=== PATIENT | male | born 1975 | race Caucasian/White ===

== ENCOUNTER 2017-08-14 13:46 | Observation (INO) ==
[2017-08-14] MEDS ORDERED: ASPIRIN 81 MG (BABY) CHEWABLE TABLET ONE (13:49)
[2017-08-14] MEDS ORDERED: NITROGLYCERIN 0.4 MG SL TAB (BOTTLE OF 3) SL ONE (13:49)
[2017-08-14] MEDS ORDERED: ASPIRIN 81 MG (BABY) CHEWABLE TABLET PO ONE (14:01)
[2017-08-14] MEDS ORDERED: NORMAL SALINE 10 ML SYRINGE FLUSH IVP PRN ×2 (14:01→16:11)
[2017-08-14 14:06] LABS: BASOPHILS # (AUTO) 0.03 10*3/UL; BASOPHILS % (AUTO) 0.3 % (0-1); EOSINOPHILS # (AUTO) 0.06 10*3/UL; EOSINOPHILS % (AUTO) 0.5 % (0-8); Hematocrit [HCT] 47.6 % (42.0-52.0); Hemoglobin [HGB] 16.1 g/dL (14.0-18.0); LYMPHOCYTES # (AUTO) 1.74 10*3/uL; MEAN CORPUSCULAR HEMOGLOBIN 31.4 PG (27-31); MEAN CORPUSCULAR HGB CONC 33.8 g/dL (33-37); MEAN CORPUSCULAR VOLUME 92.8 FL (80-90); MEAN PLATELET VOLUME 9.5 FL (7.4-12.2); MONOCYTES # (AUTO) 0.59 10*3/UL (0.3-0.8); MONOCYTES % (AUTO) 5.1 % (5-15); NEUTROPHILS # (AUTO) 9.09 10*3/UL; NEUTROPHILS % (AUTO) 78.8 % (50-80); RED BLOOD COUNT 5.13 10^6/uL (4.70-6.10)
[2017-08-14 14:07] LABS: PLATELET MORPHOLOGY COMMENT NORMAL MORPHOLOGY (NORM); RBC MORPHOLOGY COMMENT NORMAL MORPHOLOGY (NORM); WBC MORPHOLOGY COMMENT NORMAL MORPHOLOGY (NORM)
--- NOTE | 2017-08-14 14:09 | EKG ---
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
[2017-08-14 14:13] LABS: BLOOD UREA NITROGEN 14 mg/dL (7-22); SERUM ALBUMIN 4.7 g/dL (3.5-4.8)
--- NOTE | 2017-08-14 14:44 | DI ---
AP CHEST X-RAY, 08/14/2017 2:01 PM : Clinical History: Chest pain. Previous Exam: None at this facility. There is no acute soft tissue or bony abnormality. Heart size is normal. Lungs are clear. Mediastinal structures are normal. There are no pulmonary nodules. Reading: Normal chest x-ray.
[2017-08-14] MEDS ORDERED: Sodium Chloride 0.9% 1,000 ML PRIMARY IV ONE (15:00)
[2017-08-14] MEDS ORDERED: FUROSEMIDE 10 MG/1 ML - 4 ML IVP ONE (15:03)
[2017-08-14] MEDS ORDERED: LIDOCAINE W/ SODIUM BICARB 0.5 ML SYR SUBD PRN (16:11)
[2017-08-14] MEDS ORDERED: DOCUSATE 100 MG CAPSULE PO PRN (16:11)
[2017-08-14] MEDS ORDERED: ONDANSETRON 4 MG/2 ML VIAL IVP PRN (16:11)
[2017-08-14] MEDS ORDERED: CALCIUM CARBONATE 500 MG (TUMS) CHEWABLE TABLET PO PRN (16:11)
[2017-08-14] MEDS ORDERED: ACETAMINOPHEN 325 MG TABLET PO PRN (16:11)
--- NOTE | 2017-08-14 16:26 | PDOC ---
HPI - History of Present Illness Date of Service: 08/14/17 Time of Service: 18:00 Chief Complaint: espisode of chest pain, shortnes of breath and dizziness today. 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 He had the feeling that he is going to pass out twice however he managed to go back home then presented to the ER in the ER and he was found to have high blood pressure an EKG done showed questionable Q waves in inferior leads and he was admitted. They did give him Lasix because his blood pressure was high and also was giving aspirin. Now the pain and shortness of breath is gone. He said he is under stress as he lost his , he is not sleeping well, having nightmares and depressed, for these symptoms he saw PA at the clinic and was started on Zoloft last Saturday. Past Medical History Medical History: 1. Recently discovered high blood pressure on no treatment. 2. Depression Surgical History: History of surgery on left forearm Pertinent Family History: Father had congestive heart failure Past Social History: He chews tobacco, no drugs. He drinks variably. 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 However he denied having withdrawal symptoms.) Medication / Allergies Home Medications: Home Medications 3 Medication Instructions Recorded Confirmed Type amoxicillin 875 mg-potassium 1 tab PO Q12H #20 tab 07/29/17 07/29/17 Rx clavulanate 125 mg tablet gentamicin 0.3 % eye drops 2 drp OP Q4H #5 ml 07/29/17 07/29/17 Rx sertraline 25 mg tablet 25 mg PO QDAY #35 tab 08/09/17 Rx Allergies/Adverse Reactions: Allergies 3 Allergy/AdvReac Type Severity Reaction Status Date / Time No Known Allergies Allergy Verified 08/14/17 14:05 Exam - Vitals Vital Signs: Vital Signs Temperature 98.4 F Temperature Source Temporal Artery Scan Pulse Rate 74 Respiratory Rate 16 Blood Pressure 146/120 Pulse Ox 94 Oxygen Delivery Method Room Air Height 5 ft 8 in Weight 297 lb 12.8 oz - General General Appearance: No Acute Distress, Cooperative, Obese - Head Head Exam: Normal Inspection, Atraumatic - Eye Eye Exam: POSITIVE: Normal Appearance - ENT ENT Exam: POSITIVE: Normal Exam - Neck Neck Exam: Normal Inspection - Respiratory Respiratory Exam: POSITIVE: Clear to Auscultation - Bilaterally - Cardiovascular Cardiovascular Exam: POSITIVE: RRR - GI/Abdominal GI/Abdominal Exam: POSITIVE: Normal Bowel Sounds, Non Tender, Non Distended, Soft, No Organomegaly - Rectal Rectal Exam: POSITIVE: Deferred - External Exam: POSITIVE: Deferred - Extremities Extremities Exam: POSITIVE: Normal Inspection - Back Back Exam: POSITIVE: Normal Inspection - Neurological Neurological Exam: POSITIVE: Alert, Oriented x 3, CN II-XII Intact - Psychiatric Psychiatric Exam: POSITIVE: Normal Affect - Integumentary Integumentary Exam: POSITIVE: Normal Color Results - Labs CBC and BMP: 08/14/17 13:50 08/14/17 13:50 - EKG Data -: EKG Interpreted by Me Rate: Normal EKG Shows Normal: Sinus Rhythm (Questionable Q waves in the inferior leads with incomplete RBBB) - Imaging Status: Report Reviewed by Me (Chest x-ray was normal) Assessment and Plan - Patient Problems (1) Chest pain Current Visit: Yes Status: Acute Comment: Atypical chest pain, there is some Q waves though small in the inferior leads unclear significance will order repeat enzymes and will order stress test for him. Code(s): R07.9 - Chest pain, unspecified (2) HTN (hypertension) Current Visit: No Status: Chronic Comment: Blood pressure is uncontrolled he did receive some Lasix in the ER will see what's his blood pressure tonight will put him on lisinopril hydrochlorothiazide tomorrow. If blood pressure remained high and he has symptoms we may give him additional medication for now will wait to see the effect of the Lasix. Code(s): I10 - Essential (primary) hypertension Qualifiers: Hypertension type: essential hypertension Qualified Code(s): I10 - Essential (primary) hypertension
[2017-08-15 02:15] LABS: BLOOD UREA NITROGEN 14 mg/dL (7-22); BUN/CREATININE RATIO 15.55 (6-20)
--- NOTE | 2017-08-15 05:28 | PDOC ---
Chest Pain HPI - General Chief Complaint: Chest Pain Stated Complaint: chest pain Date Seen by Provider: 08/14/17 Time Seen by Provider: 13:55 Source: Patient Exam Limitations: POSITIVE: No limitations Treatment Prior to Arrival: REPORTS: Carlos Alberto Nurse's Notes Reviewed & Considered: Yes - History of Present Illness Initial Comments: The patient is a 42-year-old male. He states that for the past 2 weeks he's been having episodes of substernal chest pain which she describes as "tightness ". He also complains of some associated shortness of breath. He has no known cardiac or pulmonary problems. He states he does not smoke but he does chew tobacco. He has a history of obesity. Also history of hypertension. Body Location Affected: REPORTS: Chest Timing: REPORTS: Intermittent Duration: >1 week (2 weeks) Severity: Moderate Persistent/Worse since (date): 08/14/17 Persistent/Worse since (time): 07:00 Context: DENIES: Sleep, Rest, Emotional Upset, Activity, Exertion, Other Quality: REPORTS: Pressure ("Tightness ") Radiation: REPORTS: None Associated Symptoms: REPORTS: Shortness of Breath. DENIES: Nausea, Vomiting, Diaphoresis, Hurts to Breathe, Palpitations, Productive Cough (blood), Productive Cough (sputum), Weakness, Dizziness Modifying Factors: improves with: None Reported Similar Symptoms Previously: No Recently seen/treated/hospitalized: No Any Prior Injuries Related to Current Complaint?: No - Patient Home Medications Home Medications: Home Medications amoxicillin 875 mg-potassium clavulanate 125 mg tablet 1 tab PO Q12H #20 tab 06/03 gentamicin 0.3 % eye drops 2 drp OP Q4H #5 ml 07/29/17 sertraline 25 mg tablet 25 mg PO QDAY #35 tab 08/09/17 - Patient Allergies Allergies/Adverse Reactions: Allergies 3 Allergy/AdvReac Type Severity Reaction Status Date / Time No Known Allergies Allergy Verified 08/14/17 14:05 Past Medical History - heen HEENT History: Denies History Cardiovascular History: Denies History Respiratory History: Denies History Gastrointestinal History: Denies History Genitourinary History: Denies History Endocrine History: Denies History Musculoskeletal History: Other (please comment) Prosthesis or Implant: Yes Additional Musculoskeletal History: Left hand-pinky plate Neurological History: Denies History Blood Disorders: Denies History Psychiatric History: Anxiety Disorders History of Sexually Transmitted Diseases: No Male Reproductive History: Denies History Cancer History: Denies History In Past Year Been Physically Harmed or Verbally Threatened: No History of MDRO: No Tobacco Use: Never Smoker Type of alcohol normally used: Hard Liquor In the Past 12 Months, Have Used or Abuse Any Substance: None Previous Surgical History: Yes Type / Date of Surgery: ORIF LEFT HAND Significant Family History: Asthma, Heart disease, COPD, Hypertension Past Medical History Reviewed: Reviewed - No Changes ROS - Limitations ROS Limitations: No Limitations Constitution: REPORTS: Denies Symptoms Cardiovascular: REPORTS: Chest Pain Respiratory: REPORTS: Shortness Of Breath Neurological: REPORTS: Denies Neuro Symptoms Gastrointestinal: REPORTS: Denies GI Symptoms Endocrine: REPORTS: Denies Symptoms Musculoskeletal: REPORTS: Denies MS Symptoms Genitourinary: REPORTS: Denies Symptoms Eyes: REPORTS: Denies Symptoms ENT: REPORTS: Denies Symptoms Skin: REPORTS: Denies Skin Symptoms Lympathic: REPORTS: Denies Lympathic Symptoms Immunologic: POSITIVE: Denies Symptoms Psychiatric: POSITIVE: Denies Psych Symptoms Chest Pain PE - General Appearance General Appearance: REPORTS: Alert, Cooperative, No Acute Distress, No Evidence of Trauma, Other (Obese) - HEENT HEENT: POSITIVE: Head Inspection Nml, Eyes Inspection Nml, Ears Inspection Nml, Nose Inspection Nml, Oral/Dental Inspect. Nml, Pharynx Inspect. Nml, PERRL, EOMI - Neck Neck: REPORTS: Normal Inspection, No Carotid Bruit - Respiratory Respiratory: REPORTS: No Respiratory Distress, Breath Sounds Normal, Chest Non- Tender - Cardiovascular Cardiovascular: REPORTS: Regular Rate and Rhythm, Heart Sounds Normal, Equal Pulses, Strong Pulses, No Murmur, No Gallop, No Friction Rub, No JVD Peripheral Pulses: Radial (R): 2+, Radial (L): 2+ - Abdomen Abdomen: Soft: (All Quadrants), Normal Bowel Sounds: (All Quadrants), Denies Tenderness: (All Quadrants), No Splenomegaly: (All Quadrants), No Hepatomegaly: (All Quadrants), No Guarding: (All Quadrants), No Rebound: (All Quadrants), No Palpable Pulse: (All Quadrants), No Palpabale Mass: (All Quadrants), No Distention: (All Quadrants), No Rigidity: (All Quadrants) - Skin Skin: REPORTS: Intact, Normal For Race, Warm, Dry, No Rash - Extremities Extremity: Non-Tender: (All Extremities), Normal ROM: (All Extremities), Normal Inspection: (All Extremities) - Neurological / Psychological Neurological: POSITIVE: Affect Apporpriate, Oriented X3, production expediter Normal As Tested, Motor Normal, Sensation Normal Reflexes: Radial (R): 2+, Radial (L): 2+ Images - Complete Complete: 1 - Area of describes discomfort/pain Chest Pain Progress - Results Reviewed by me Xrays/CTs/US Reviewed by me: Yes Discussed with Radiologist: No Radiology Findings: Portable chest x-ray normal Lab Results Reviewed by Me: Yes (troponin and d-dimer are normal) CBC and BMP: 08/14/17 13:50 08/15/17 02:00 EKG Interpreted/Reviewed By Me:: Yes (Q waves in inferior leads compatible with old myocardial infarction) EKG Interpretation:: POSITIVE: Normal Sinus Rhythm, Normal Rate, Normal Intervals, Normal [place], Normal ST/T. NEGATIVE: Normal QRS (Q waves in leads 2, 3 and aVF, compatible with myocardial infarction, probably old) - Patient's Progress Pain Medication Addressed: POSITIVE: Not Applicable Re-Examine Time: 14:50 Re-Examine Comment: Options of treatment discussed with patient. Patient's risk factors include hypertension, obesity and an abnormal electrocardiogram. Patient admitted by hospitalist for further evaluation and treatment. Chest discomfort minimal on discharge from the ER. Status: POSITIVE: Improved, Re-Examined Quality Measure Initiative: CP/AMI: POSITIVE: EKG, ASA - Consult Consult (If Yes, Name of Consulting MD & Time Called): Yes (Dr. Sosa, hospitalist, 1964) Consulting MD will see pt:: POSITIVE: [facility] [place] Admit Counseled: POSITIVE: Patient, RE: Lab Results, RE: Radiology Results, RE: DX, RE : Need for F/U Patient Care Time - Estimated PCT Patient Care Time (In Minutes): 45 Vital Signs - Recent Vital Signs Vital Signs: Vital Signs (Last 8 hours) Temp Pulse Pulse BP Pulse Ox 08/15/17 03:00 60 08/15/17 00:56 96.9 F 64 144/63 96 08/14/17 23:00 69 - VS Reviewed Vital Signs Reviewed: Yes Discharge Clinical Impression: Chest pain HTN (hypertension) Qualifiers: Hypertension type: essential hypertension Qualified Code(s): I10 - Essential ( primary) hypertension Discharge Disposition: Admit to Inpatient Condition: Fair Date Decision to Admit to Inpatient: 08/14/17 Time Decision to Admit to Inpatient: 14:50
[2017-08-15] MEDS: HYDROCHLOROTHIAZIDE 12.5 MG CAPSULE PO SCH (07:12)
[2017-08-15] MEDS: Sertraline Tab 50 MG TAB PO SCH (10:09)
[2017-08-15] MEDS: ASPIRIN 325 MG EC TABLET PO SCH (10:10)
[2017-08-15] MEDS: LISINOPRIL 10 MG TABLET PO SCH (10:10)
--- NOTE | 2017-08-15 13:19 | PDOC(PROG) ---
Date and Time of Service: 08/15/2017 1:19 PM Interval History: Subjective No chest pain today, no shortness of breath. No dizziness Objective : Data - Labs CBC and BMP: 08/14/17 13:50 08/15/17 02:00 Objective : Exam - General General Appearance: No Acute Distress, Cooperative, Morbidly Obese - Head Head Exam: Normal Inspection, Atraumatic - Eye Eye Exam: Normal Appearance - ENT ENT Exam: Normal Exam - Neck Neck Exam: Normal Inspection - Respiratory Respiratory Exam: Clear to Auscultation - Bilaterally - Cardiovascular Cardiovascular Exam: RRR - GI/Abdominal GI/Abdominal Exam: Normal Bowel Sounds, Non Tender, Non Distended, Soft, No Organomegaly - Rectal Rectal Exam: Deferred - External Exam: Deferred Exam: Deferred - Extremities Extremities Exam: Normal Inspection - Back Back Exam: Normal Inspection - Neurological Neurological Exam: Alert, Oriented x 3, CN II-XII Intact, No Facial Droop, Speech Intact / Clear, Moves All Extremities Equally - Psychiatric Psychiatric Exam: Normal Affect - Integumentary Integumentary Exam: Normal Color Assessment and Plan - Patient Problems (1) Chest pain Current Visit: Yes Status: Acute Comment: No chest pain today. It's atypical pain. Enzymes are negative. He had the first part of the test which is the resting image. He'll stay to have the second part of the stress test tomorrow. Code(s): R07.9 - Chest pain, unspecified (2) HTN (hypertension) Current Visit: Yes Status: Chronic Comment: We did start him on lisinopril and hydrochlorothiazide and will watch his blood pressure will see whether we need to adjust more. I did inform her about potential side effects and need for repeat chemistry later on post discharge Code(s): I10 - Essential (primary) hypertension Qualifiers: Hypertension type: essential hypertension Qualified Code(s): I10 - Essential (primary) hypertension
[2017-08-16] MEDS: HYDROCHLOROTHIAZIDE 12.5 MG CAPSULE PO SCH (06:46)
[2017-08-16 08:08] VITALS: RESP 20
[2017-08-16] MEDS: Sertraline Tab 50 MG TAB PO SCH (08:24)
[2017-08-16] MEDS: ASPIRIN 325 MG EC TABLET PO SCH (08:26)
[2017-08-16] MEDS: LISINOPRIL 10 MG TABLET PO SCH (08:26)
[2017-08-16 13:21] VITALS: BP 144/84; TEMP 97.2; O2SAT 94
--- NOTE | 2017-08-16 14:15 | STRESSTEST ---
[facility] Interpretive Statements This is a 42 YO male with HTN, chewing tobacco, + family history CAD, no DMII, no cholesterol problems, that presented with chest pain. Ruled out for IL. Resting EKG NSR. Exercised with cardiolyte Silver protocol. Exercised to stage III, 6:50. Reached 85% predicted maximum HR. Hypertensive response to exercise. No concerning morphologies and no sympoms of chest pain or SOB. fatigued. double producte, 34, 848. Impression: negative maximal stress test with hypertensive response to exercise. Plan: images to be reviewed by radiology. [id number]
--- NOTE | 2017-08-16 15:46 | DI ---
Exam: NM CARDIAC SPECT HISTORY: Chest pain TECHNIQUE: Silver protocol 2 day myocardial multi SPECT examination was performed. On day one 35.9 mCi of sestamibi technetium 99m was injected. Multi planar imaging was performed. 24 hours later 35.3 mCi of sestamibi technetium 99m was administered intravenously and multi planar SPECT imaging was obtained. Limited CT chest without contrast was also performed at the level of the heart. CT DOSE: Total Exam volume computed tomography highest dose index (CTDIvol) = 7.65 mGy and total Dose Length Product (DLP) = 180 mGY-cm COMPARISON EXAM: Chest radiograph 09/11/17 FINDINGS: Limited CT chest findings: No coronary artery calcification identified. Heart size normal. No pericardial effusion. Thoracic aorta normal caliber. Partially visualized lung celeste are clear. No pleural effusion. No mediastinal or hilar adenopathy. Visualized upper abdominal structures demonstrate fatty appearance of the liver. Nuclear medicine SPECT cardiac: In the inferior lateral apical region there is a fixed defect compatible with old infarct. No other fixed or reversible defects identified. Stress ejection fraction calculated at 68%. Rest ejection fraction loculated at 66%. Hypokinetic wall motion in the area of infarct in the inferior lateral apical region. Many wall motion appears within normal limits. CONCLUSION: 1. Fixed defect in the inferior lateral apical region consistent with old infarct and scarring. This region demonstrates hypokinetic wall motion. 2. No other fixed or reversible defects. Remaining wall motion is within normal limits. 3. Ejection fraction on stress images cochlear at 68% and on rest images Limits 66%. 4. CT Limited chest demonstrates no coronary artery calcifications. 5. Fatty liver.
--- NOTE | 2017-08-16 16:43 | DCSUMMARY ---
Hospitalization Summary Admit Date: 08/14/2017 Discharge Date: 08/16/17 Primary Diagnosis:: chest pain, resolved Hospital Course: This very pleasant 42-year-old male who came in with chest pain of acute onset. He was admitted, ruled out for coronary artery disease, and had a Cardiolite stress test which ended up showing a fixed defect. His chest pain resolved. We will have a cholesterol panel drawn at the time of discharge. Spoke with the fiber picker regarding his fixed defect, and I think it would be beneficial for the patient to do a stress echocardiogram to determine whether this is a true defect fixed defect or not. The patient was in agreement with this strategy. In terms of blood pressure, given his depression, anxiety, and stress, we think a beta key might increase his depression so we will hold off on that and prescribed lisinopril and hydrochlorothiazide for now. He should have repeat electrolytes done in about a week. Past depression was controlled during the hospital stay. We talked about reducing tobacco and quitting tobacco, we also talked about reducing alcohol intake to no more than 2 ounces, on average, per day. Given that the stress test was negative for any acute coronary artery disease, no further symptoms of chest pain, no symptoms suggestive of GERD, some suggestive symptoms of stress and anxiety in the setting of depression, I feel it best to continue to treat him with antihypertensives, aspirin for secondary prevention, and again repeat stress test with a stress echocardiogram. In addition, the patient would benefit greatly from continued management of his depression which is artery being done on a primary care site. No shortness breath and no nausea or vomiting today. Assessment and Plan: 1. As per discharge assessments noted 2. Disposition: Patient is discharged home 3. Condition on discharge, stable and improved. 4. Diet: regular diet 5. Activities: resume normal activities, but quit tobacco and cut back on alcohol 6. Follow-Up: 1. Primary care provider in one week 2. 7. Medications at the Time of Discharge: Home Medications 3 Medication Instructions Recorded Confirmed Type Aspirin EC 81 mg PO AC BK #90 tablet. 08/16/17 Rx Hydrochlorothiazide [HydroDiuril] 12.5 mg PO DAILY@0700 #30 cap 08/16/17 Rx Lisinopril [Prinivil Tab] 10 mg PO DAILY #30 tab 08/16/17 Rx Sertraline HCl [Zoloft] 25 mg PO BEDTIME tab 08/16/17 Rx 8. Time, care, counseling and coordination of care for this discharge is greater than 30 minutes. Exam - Vitals Vital Signs: Vital Signs Temperature 97.2 F Temperature Source Temporal Artery Scan Pulse Rate [Pulse Oximeter 67 Right] Pulse Rate 77 Respiratory Rate 20 Blood Pressure [Left Radial 144/84 Artery] Blood Pressure [Right Radial 160/86 Artery] Blood Pressure 146/120 Pulse Ox 94 Oxygen Delivery Method Room Air Height 5 ft 8 in Weight 298 lb 1.6 oz - General General Appearance: No Acute Distress, Cooperative - Head Head Exam: Normal Inspection, Normocephalic, Atraumatic - Eye Eye Exam: POSITIVE: No Scleral Icterus - ENT ENT Exam: POSITIVE: Mucous Membranes Moist - Respiratory Respiratory Exam: POSITIVE: Clear to Auscultation - Bilaterally, Breathing Non Labored - Cardiovascular Cardiovascular Exam: POSITIVE: RRR, No Murmur, No Clicks, No Gallops, No Rubs, No JVD - GI/Abdominal GI/Abdominal Exam: POSITIVE: Normal Bowel Sounds, Non Tender, Non Distended, Soft - Extremities Extremities Exam: POSITIVE: No Clubbing Present, No Edema Present, No Cyanosis Present - Neurological Neurological Exam: POSITIVE: Alert, Oriented x 3, No Facial Droop, Speech Intact / Clear, Moves All Extremities Equally Data Peritnent Studies: 08/14/17 08/14/17 08/14/17 13:50 13:50 13:50 WBC 11.53 H Hgb 16.1 Hct 47.6 Plt Count 285 D-Dimer 0.24 Sodium Potassium Chloride Carbon Dioxide Anion Gap BUN Creatinine Glucose Calcium Total Bilirubin 0.7 AST 43 ALT 41 Alkaline Phosphatase 70 CK-MB (CK-2) Troponin I Total Protein 7.8 Albumin 4.7 Globulin 3.1 08/14/17 08/14/17 08/15/17 13:50 19:59 02:00 WBC Hgb Hct Plt Count D-Dimer Sodium Potassium Chloride Carbon Dioxide Anion Gap BUN Creatinine Glucose Calcium Total Bilirubin AST ALT Alkaline Phosphatase CK-MB (CK-2) 1.36 Troponin I < 0.012 < 0.012 < 0.012 Total Protein Albumin Globulin 08/15/17 02:00 WBC Hgb Hct Plt Count D-Dimer Sodium 142 Potassium 4.0 Chloride 103 Carbon Dioxide 27 Anion Gap 12 BUN 14 Creatinine 0.9 Glucose 106 Calcium 9.1 Total Bilirubin AST ALT Alkaline Phosphatase CK-MB (CK-2) Troponin I Total Protein Albumin Globulin Patient Problems - Patient Problem List (1) Chest pain Current Visit: Yes Status: Acute Code(s): R07.9 - Chest pain, unspecified Qualifiers: Chest pain type: unspecified Qualified Code(s): R07.9 - Chest pain, unspecified Category: Medical (2) Depression Current Visit: No Status: Acute Code(s): F32.9 - Major depressive disorder, single episode, unspecified Qualifiers: Depression Type: other depression Qualified Code(s): F32.89 - Other specified depressive episodes Category: Medical (3) Tobacco use Current Visit: Yes Status: Chronic Code(s): Z72.0 - Tobacco use Category: Medical (4) HTN (hypertension) Current Visit: Yes Status: Acute Code(s): I10 - Essential (primary) hypertension Qualifiers: Hypertension type: essential hypertension Qualified Code(s): I10 - Essential (primary) hypertension Category: Medical
[2017-08-16 17:39] LABS: CHOL/HDL RATIO 2.17 RATIO (0-4.0)
[2017-08-16] MEDS ORDERED: Sertraline Tab 50 MG TAB PO SCH (21:00)
== END 2017-08-16 17:20 | disposition home or self-care (01) ==
LOC: ER 13:46 → MED/SURG 13:46
PROVIDERS: ADMIT Internal Medicine; ATTEND Internal Medicine